=== PATIENT | male | born 1980 | race Caucasian/White ===

== ENCOUNTER 2023-02-22 22:03 | Emergency (ER) | payer SELFPAY ==
[2023-02-22 22:05] VITALS: BP 133/69; PULSE 125; RESP 18; TEMP 36.8; O2SAT 97; BMI 29.5
--- NOTE | 2023-02-22 22:11 | ECG_ITS ---
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 Measurements Intervals [place] Rate: 127 P: 65 ND: 152 QRS: 52 QRSD: 94 T: 44 QT: 318 QTc: 463 Interpretive Statements SINUS TACHYCARDIA NONSPECIFIC T-WAVE ABNORMALITY ABNORMAL RHYTHM ECG No previous ECG available for comparison Electronically Signed On 02-23-2023 14:52:01 CDT by Kodak Lepe M.D. [email or web address]
--- NOTE | 2023-02-22 22:11 | XRR_ITS ---
PROCEDURE INFORMATION: Exam: XR Chest Exam date and time: 02/22/2023 10:17 PM Age: 43 years old Clinical indication: Chest pressure; Patient HX: C/O chest pain TECHNIQUE: Imaging protocol: Radiologic exam of the chest. Views: 1 view. COMPARISON: No relevant prior studies available. FINDINGS: Lungs: Unremarkable. No consolidation. Pleural spaces: Unremarkable. No pleural effusion. No pneumothorax. Heart/Mediastinum: Unremarkable. No cardiomegaly. Bones/joints: Unremarkable. XR/XR chest 1V portable [id number] IMPRESSION: No acute findings.
--- NOTE | 2023-02-22 22:20 | W.ED.ANXIETY ---
Documented by User: Simon Ohara DO 02/22/23 22:43 HPI - Anxiety General: Chief Complaint: Anxiety Stated Complaint: CHEST PAIN/ANIXETY Time Seen by Provider: 02/22/23 22:06 History of Present Illness: Patient is here by EMS with chest pain and anxiety. Chest pain started earlier today along with anxiety. Patient has horrible anxiety all the time per him. Per notes EMS thought they saw an SVT rhythm and gave the patient 2 doses of adenosine which did not help. Then they realized it was sinus tach and gave him a dose of Versed which calmed him down and help the chest pain and his anxiety. Review of Systems General: Reports: 10 or more systems reviewed and unremarkable except in HPI and below Physical Exam Const: COMMON NORMALS: no acute distress, average body habitus, patient oriented x3, no limitations, healthy appearing, alert and well nourished HENMT: COMMON NORMALS: normocephalic, atraumatic, hearing grossly normal bilaterally, external ears normal, Normal external nose present and moist oral mucous membranes HEAD & SCALP: normocephalic and atraumatic NOSE: Normal external nose present EXTERNAL EAR: Yes external ears normal Eye: COMMON NORMALS: Equal, round and reactive pupils present, EOMs intact bilaterally, conjunctivae normal and no scleral icterus CONJUNCTIVA: Yes conjunctivae normal PUPIL: Yes Equal, round and reactive pupils present Neck/C-Spine: COMMON NORMALS: full ROM, no lymphadenopathy, supple, no meningeal signs, no JVD and Thyroid normal THYROID: Thyroid normal Chest: COMMONS NORMALS: normal inspection of the chest and normal palpation of entire chest wall Resp: COMMON NORMALS: normal respiratory effort, No retractions, No use of accessory muscles and clear to auscultation bilaterally AUSCULTATION: clear to auscultation bilaterally Cardio: COMMON NORMALS: no JVD, regular rhythm, S1 normal heart sound present, S2 normal heart sound present, No gallops present (Cardio), No clicks present (Cardio), No murmurs present (Cardio) and No rub (Cardio); negative for regular rate (Tachycardic) RATE: abnormal rate (Tachycardic) RHYTHM: regular rhythm HEART SOUNDS: S1 normal heart sound present and S2 normal heart sound present GI: COMMON NORMALS: Normal to inspection, nondistended, normoactive bowel sounds present, Soft to palpation, non-tender, No hepatosplenomegaly present and no masses PALPATION: Yes Soft to palpation and Yes No hepatosplenomegaly present Neuro: COMMON NORMALS: patient oriented x3 SENSORIUM/ORIENTATION: Yes alert MENINGEAL SIGNS: Yes no meningeal signs Course Vital Signs: Vital signs: Vital Signs Temperature 98.3 F 02/22/23 22:05 Pulse Rate 84 02/23/23 01:30 Respiratory Rate 18 02/23/23 01:30 Blood Pressure 156/103 02/23/23 01:30 Pulse Oximetry 96 02/23/23 01:30 Oxygen Delivery Me thod Room Air 02/22/23 22:29 MDM - Anxiety Differential Diagnosis Likely acute anxiety; Unlikely hyperventilation or panic disorder Medical Records I reviewed the patient's medical records. Lab Data I reviewed the patient's lab results. 02/22/23 22:40 Radiology Impressions Chest X-Ray 02/22/23 22:11 IMPRESSION: No acute findings. Laboratory Results WBC 15.09 10^3/uL (3.29-11.43) H 02/22/23 22:40 RBC 4.01 10^6/uL (3.85-5.65) 02/22/23 22:40 Hgb 13.40 g/dL (11.27-16.99) 02/22/23 22:40 Hct 37.7 % (37-53) 02/22/23 22:40 MCV 94.0 fl (82-101) 02/22/23 22:40 MCH 33.4 pg (27-33) H 02/22/23 22:40 MCHC 35.5 g/dL (30-55) 02/22/23 22:40 RDW 11.9 % (12.1-15.1) L 02/22/23 22:40 Plt Count 203 10^3/cmm (157-399) 02/22/23 22:40 MPV 9.7 fL (7.4-10.4) 02/22/23 22:40 Neut % (Auto) 86.4 % 02/22/23 22:40 Lymph % (Auto) 8.3 % 02/22/23 22:40 [place] % (Auto) 4.0 % 02/22/23 22:40 Eos % (Auto) 0.3 % 02/22/23 22:40 Baso % (Auto) 0.3 % 02/22/23 22:40 Neut # (Auto) 13.04 10^3/uL (1.8-7.7) H 02/22/23 22:40 Lymph # (Auto) 1.3 10^3/uL (0.8-4.8) 02/22/23 22:40 [place] # (Auto) 0.6 10^3/uL (0.2-0.9) 02/22/23 22:40 Eos # (Auto) 0.0 10^3/uL (0.0-0.8) 02/22/23 22:40 Baso # (Auto) 0.1 10^3/uL (0.0-0.1) 02/22/23 22:40 Nucleated RBC % (auto) 0 % 02/22/23 22:40 Nucleated RBCs # 0.0 /100WBC 02/22/23 22:40 Creatine Kinase 104 U/L (39-308) 02/22/23 22:40 Troponin T Baseline 10 ng/L (0-15) 02/22/23 22:40 Troponin T 120 Minute 9.29 ng/L (0-15) 02/23/23 00:35 Delta Troponin T -0.71 ABS# (0-10) L 02/23/23 00:35 Urine Color Yellow (Yellow) 02/23/23 01:01 Urine Appearance Clear (CLEAR) 02/23/23 01:01 Urine pH 7 (5-7) 02/23/23 01:01 Ur Specific [place] 1.005 (1.005-1.030) 02/23/23 01:01 Urine Protein Neg (Negative) 02/23/23 01:01 Urine Glucose (UA) Norm (Normal) 02/23/23 01:01 Urine Ketones Negative (Negative) 02/23/23 01:01 Urine Blood Neg (Negative) 02/23/23 01:01 Urine Nitrate Negative (Negative) 02/23/23 01:01 Urine Bilirubin Neg (Negative) 02/23/23 01:01 Urine Urobilinogen Neg mg/dL (Negative) 02/23/23 01:01 Ur Leukocyte Esterase Negative (Negative) 02/23/23 01:01 Urine Opiates Screen Negative ng/mL (Negative) 02/23/23 01:01 Ur Barbiturates Screen Negative ng/mL (Negative) 02/23/23 01:01 Ur Phencyclidine Scrn Negative ng/mL (Negative) 02/23/23 01:01 Ur Amphetamines Screen Negative ng/mL (Negative) 02/23/23 01:01 U Benzodiazepines Scrn Negative ng/mL (Negative) 02/23/23 01:01 Urine Cocaine Screen Negative ng/mL (Negative) 02/23/23 01:01 U Marijuana (THC) Screen Positive ng/mL (Negative) H 02/23/23 01:01 All radiology interpretation(s) finalized by discharge EKG Data EKG 1: I personally reviewed and interpreted this EKG as follows: EKG interpretation date: 02/22/23 EKG interpretation time: 22:06 Prior EKG tracings: not available for review Interpretation: Chest X-Ray 02/22/23 22:11 IMPRESSION: No acute findings. EKG shows ventricular rate 127 bpm, [place] interval 152, QRS duration 94, QTc 393 sinus tachycardia nonspecific T wave abnormality Other EKG comments: Chest X-Ray 02/22/23 22:11 IMPRESSION: No acute findings. Discharge Plan Discharge Patient Disposition: Home Clinical Impression: Acute anxiety, Chest pain Condition: Stable Discharge Orders: Discharge ED (Routine); Ordered 02/23/23 Ordered By: Ravi Corea Discharge Diet: Advance as tolerated Discharge Activity: Increase activity as tolerated Patient Instructions: Chest Pain (ED), Anxiety (ED) Activity Restrictions/Additional Instructions: Your did not reveal a cause of your chest pain in the emergency department this evening. See your doctor in follow-up this week. Make sure you stay hydrated. Return for problems. Coding Level of Care Code ED Ms Access Database Developer for Chg Fwd Documented by User: Ravi Corea, 02/23/23 02:01 HPI - Anxiety General: Chief Complaint: Anxiety Stated Complaint: CHEST PAIN/ANIXETY Time Seen by Provider: 02/22/23 22:06 Course Vital Signs: Vital signs: Vital Signs Temperature 98.3 F 02/22/23 22:05 Pulse Rate 84 02/23/23 01:30 Respiratory Rate 18 02/23/23 01:30 Blood Pressure 156/103 02/23/23 01:30 Pulse Oximetry 96 02/23/23 01:30 Oxygen Delivery Me thod Room Air 02/22/23 22:29 MDM - Anxiety Medical Decision Making 43-year-old male checked out to me by Dr. Ohara at shift change. This patient has chest pain. EKG interpretation listed below. Chest x-ray is negative. Urine drug screen is positive for marijuana. Urinalysis is negative. Delta troponin at 2 hours is -0.7. He has a mild elevation in white blood cell count, with no other laboratory abnormalities. He will be allowed discharge. Outpatient follow-up. Return for worsening symptoms. Lab Data 02/22/23 22:40 Radiology Impressions Chest X-Ray 02/22/23 22:11 IMPRESSION: No acute findings. Laboratory Results WBC 15.09 10^3/uL (3.29-11.43) H 02/22/23 22:40 RBC 4.01 10^6/uL (3.85-5.65) 02/22/23 22:40 Hgb 13.40 g/dL (11.27-16.99) 02/22/23 22:40 Hct 37.7 % (37-53) 02/22/23 22:40 MCV 94.0 fl (82-101) 02/22/23 22:40 MCH 33.4 pg (27-33) H 02/22/23 22:40 MCHC 35.5 g/dL (30-55) 02/22/23 22:40 RDW 11.9 % (12.1-15.1) L 02/22/23 22:40 Plt Count 203 10^3/cmm (157-399) 02/22/23 22:40 MPV 9.7 fL (7.4-10.4) 02/22/23 22:40 Neut % (Auto) 86.4 % 02/22/23 22:40 Lymph % (Auto) 8.3 % 02/22/23 22:40 [place] % (Auto) 4.0 % 02/22/23 22:40 Eos % (Auto) 0.3 % 02/22/23 22:40 Baso % (Auto) 0.3 % 02/22/23 22:40 Neut # (Auto) 13.04 10^3/uL (1.8-7.7) H 02/22/23 22:40 Lymph # (Auto) 1.3 10^3/uL (0.8-4.8) 02/22/23 22:40 [place] # (Auto) 0.6 10^3/uL (0.2-0.9) 02/22/23 22:40 Eos # (Auto) 0.0 10^3/uL (0.0-0.8) 02/22/23 22:40 Baso # (Auto) 0.1 10^3/uL (0.0-0.1) 02/22/23 22:40 Nucleated RBC % (auto) 0 % 02/22/23 22:40 Nucleated RBCs # 0.0 /100WBC 02/22/23 22:40 Creatine Kinase 104 U/L (39-308) 02/22/23 22:40 Troponin T Baseline 10 ng/L (0-15) 02/22/23 22:40 Troponin T 120 Minute 9.29 ng/L (0-15) 02/23/23 00:35 Delta Troponin T -0.71 ABS# (0-10) L 02/23/23 00:35 Urine Color Yellow (Yellow) 02/23/23 01:01 Urine Appearance Clear (CLEAR) 02/23/23 01:01 Urine pH 7 (5-7) 02/23/23 01:01 Ur Specific [place] 1.005 (1.005-1.030) 02/23/23 01:01 Urine Protein Neg (Negative) 02/23/23 01:01 Urine Glucose (UA) Norm (Normal) 02/23/23 01:01 Urine Ketones Negative (Negative) 02/23/23 01:01 Urine Blood Neg (Negative) 02/23/23 01:01 Urine Nitrate Negative (Negative) 02/23/23 01:01 Urine Bilirubin Neg (Negative) 02/23/23 01:01 Urine Urobilinogen Neg mg/dL (Negative) 02/23/23 01:01 Ur Leukocyte Esterase Negative (Negative) 02/23/23 01:01 Urine Opiates Screen Negative ng/mL (Negative) 02/23/23 01:01 Ur Barbiturates Screen Negative ng/mL (Negative) 02/23/23 01:01 Ur Phencyclidine Scrn Negative ng/mL (Negative) 02/23/23 01:01 Ur Amphetamines Screen Negative ng/mL (Negative) 02/23/23 01:01 U Benzodiazepines Scrn Negative ng/mL (Negative) 02/23/23 01:01 Urine Cocaine Screen Negative ng/mL (Negative) 02/23/23 01:01 U Marijuana (THC) Screen Positive ng/mL (Negative) H 02/23/23 01:01 EKG Data EKG 1: Interpretation: Chest X-Ray 02/22/23 22:11 IMPRESSION: No acute findings. Other EKG comments: Chest X-Ray 02/22/23 22:11 IMPRESSION: No acute findings. Discharge Plan Discharge Patient Disposition: Home Clinical Impression: Acute anxiety, Chest pain Condition: Stable Discharge Orders: Discharge ED (Routine); Ordered 02/23/23 Ordered By: Ravi Corea Discharge Diet: Advance as tolerated Discharge Activity: Increase activity as tolerated Patient Instructions: Chest Pain (ED), Anxiety (ED) Activity Restrictions/Additional Instructions: Your did not reveal a cause of your chest pain in the emergency department this evening. See your doctor in follow-up this week. Make sure you stay hydrated. Return for problems. Coding Level of Care Code ED Ms Access Database Developer for Berto Chapman
[2023-02-22] MEDS: sodium chloride 0.9% 1,000 ML 999 ML IV (22:27)
[2023-02-22 22:29] VITALS: BP 133/69; O2SAT 96
[2023-02-22 22:48] LABS: Basophils # 0.1 10^3/uL (0.0-0.1); Basophils % 0.3 %; Eosinophils % 0.3 %; Hematocrit 37.7 % (37-53); Lymphocytes # 1.3 10^3/uL (0.8-4.8); Lymphocytes % 8.3 %; Mean Corpuscular HGB Conc 35.5 g/dL (30-55); Mean Corpuscular Hemoglobin 33.4 pg (27-33); Mean Platelet Volume 9.7 fL (7.4-10.4); Monocytes # 0.6 10^3/uL (0.2-0.9); Neutrophils # 13.04 10^3/uL (1.8-7.7); Neutrophils % 86.4 %; Nucleated Red Blood Cells % 0 %; Platelet Count 203 10^3/cmm (157-399); Red Blood Count 4.01 10^6/uL (3.85-5.65); Red Cell Distribution Width 11.9 % (12.1-15.1); White Blood Count 15.09 10^3/uL (3.29-11.43)
[2023-02-22 23:16] LABS: Troponin(5th) Baseline 10 ng/L (0-15)
[2023-02-22 23:17] LABS: Creatine Phosphokinase 104 U/L (39-308)
[2023-02-23 01:04] LABS: Add Urine Microscopic? NO; Charge for UA Resulting for Rev
[2023-02-23 01:04] LABS: Troponin 5 2HR 9.29 ng/L (0-15); Troponin 5 2HR Delta -0.71 ABS# (0-10)
[2023-02-23 01:06] LABS: Urine Color Yellow (Yellow)
[2023-02-23 01:07] LABS: Bilirubin Urine Neg (Negative); Blood Urine Neg (Negative); Glucose Urine UA Norm (Normal); Ketones Urine Negative (Negative); Leukocyte Esterase Urine Negative (Negative); Nitrate Urine Negative (Negative); Protein Urine Neg (Negative); Specific Gravity, Urine 1.005 (1.005-1.030); Urine Appearance Clear (CLEAR); Urobilinogen Urine Neg (Negative); pH Urine 7 (5-7)
[2023-02-23 01:16] LABS: Amphetamines Screen Urine Negative (Negative); Barbiturates Screen Urine Negative (Negative); Benzodiazepines Screen Urine Negative (Negative); Cocaine Screen Urine Negative (Negative); Opiate Screen Urine Negative (Negative); PCP Screen Urine Negative (Negative); THC Screen Urine Positive (Negative)
[2023-02-23 01:30] VITALS: BP 156/103; PULSE 84; RESP 18; O2SAT 96
== END 2023-02-23 01:36 | disposition home or self-care (01) ==
PROVIDERS: Emergency Provider Emergency Medicine
DX: F41.9 Anxiety disorder, unspecified (principal); R07.9 Chest pain, unspecified
CPT/HCPCS: 36415; 71045; 80306; 81003; 82550; 84484; 85025; 93005; 99285; J7030